=== PATIENT | female | born 1960 | race Hispanic/Latino ===

== ENCOUNTER 2017-07-10 04:23 | Inpatient (IN) | payer MEDICARE, MEDICAID ==
--- NOTE | 2017-07-10 04:38 | C.PDOC ---
History Of Present Illness 56 year old female is a transfer patient from [facility] for psychiatric admission. Patient is transferred ED to ED for visual, auditory hallucinations as well as ETOH abuse. Patient is medically cleared and will be admitted under Dr. Beyer to psych. Chief Complaint (Nursing): Psychiatric Evaluation History Per: Patient, EMS History/Exam Limitations: no limitations Onset/Duration Of Symptoms: Days Current Symptoms Are (Timing): Still Present Suicide/Self Injury Attempted (Context): None Modifying Factor(s): Alcohol Associated Symptoms: denies: Depression, Suicidal Thoughts, Suicidal Plan Involuntary Hold By: None Recent travel outside of the [facility]: No Additional History Per: Patient, EMS Past Medical History Reviewed: Historical Data, Nursing Documentation, Vital Signs Vital Signs: Last Vital Signs Temp 98.1 F 07/10/17 04:25 Pulse 91 H 07/10/17 04:25 Resp 20 07/10/17 04:25 BP 139/90 07/10/17 04:25 Pulse Ox 98 07/10/17 04:38 - Medical History PMH: No Chronic Diseases Denies: Chronic Kidney Disease Surgical History: No Surg Hx - [facility] GROUP PSYCHOTHERAPY (06/06/16) INDIVIDUAL PSYCHOTHERAPY, COGNITIVE-BEHAVIORAL (06/06/16) Family History: States: Unknown Family Hx - Social History Hx Alcohol Use: Yes Hx Substance Use: No Review Of Systems Constitutional: Negative for: Fever, Chills Cardiovascular: Negative for: Chest Pain, Palpitations Respiratory: Negative for: Cough, Shortness of Breath Gastrointestinal: Negative for: Nausea, Vomiting, Abdominal Pain Skin: Negative for: Rash Neurological: Negative for: Weakness, Numbness Psych: Negative for: Depression, Suicidal ideation Physical Exam - Physical Exam Appears: Non-toxic, No Acute Distress Skin: Normal Color, Warm, Dry Head: Atraumatic, Normacephalic Eye(s): bilateral: Normal Inspection Nose: No Discharge, No Deformity Oral Mucosa: Moist Neck: Normal ROM, Supple Chest: Symmetrical Cardiovascular: Rhythm Regular, No Murmur Respiratory: Normal Breath Sounds, No Rales, No Rhonchi, No Wheezing Gastrointestinal/Abdominal: Soft, No Tenderness, No Guarding, No Rebound Extremity: Normal ROM, No Pedal Edema, No Calf Tenderness, No Deformity, No Swelling Neurological/Psych: Oriented x3 ED Course And Treatment O2 Sat by Pulse Oximetry: 98 (On RA) Pulse Ox Interpretation: Normal Medical Decision Making Medical Decision Making: Patient will be admitted to the Hospital under Dr. Beyer to psychiatric services. Disposition Discussed With .: Donya Beyer Doctor Will See Patient In The: Hospital Counseled Patient/Family Regarding: Diagnosis - Disposition Disposition: HOSPITALIZED Disposition Time: 04:37 Condition: STABLE Forms: [facility] (Norwegian) - POA Present On Arrival: None - Clinical Impression Clinical Impression: Bipolar disorder, Schizoaffective disorder - Scribe Statement The provider has reviewed the documentation as recorded by the Scribe Cezar Guardado All medical record entries made by the Scribe were at my direction and personally dictated by me. I have reviewed the chart and agree that the record accurately reflects my personal performance of the history, physical exam, medical decision making, and the department course for this patient. I have also personally directed, reviewed, and agree with the discharge instructions and disposition.
--- NOTE | 2017-07-10 05:27 | PCM.BM ---
<Scar Villalta - Last Filed: 07/10/17 05:24> Treatment Plan Problems - Problems identified on initial assessmt Auditory Hallucination Date Initiated: 07/10/17 Time Initiated: 05:00 Assessment reference: NA Status: Active Visual Hallucination Date Initiated: 07/10/17 Time Initiated: 05:00 Assessment reference: NA Status: Active Alcohol Dependence Date Initiated: 07/10/17 Time Initiated: 05:00 Assessment reference: NA Status: Active Treatment assets and liabiliti Patient Assests: ADL independent, negotiates basic needs Patient Liabilities: live alone, financial problems, poor support system, substance abuse, imparied memory, legal issue - Milieu Protocol Maintain good personal hygiene: daily Encourage regular showers, daily Remind patient to perform daily oral care, daily Assist patient to perform ADL's Maintain personal safety: every shift Educate patient to report safety concerns to staff, every shift Monitor environment for contraband/sharps Medication safety: Monitor for expected outcome, potential side effects: every shift, Assess barriers to learning: every shift, Assess readiness for medication education: every shift <Maryellen Yepez - Last Filed: 07/11/17 10:43> Family Contact Family involvement: Famliy/SO not involved - Goals for Treatment Patient goals for treatment: "I need something to sleep." Discharge/Continuing Care - Education Needs Education Needs: Patient Medication, Patient Coping Skills - Discharge Discharge Criteria: Tolerates medication w/o severe side effects, Reduction of target symptoms Discharge to:: Home - Treatment Team Participation Discussed with Family/SO: No Was Patient/Family/SO present at Treatment Team Meeting: Yes <Theodore Rosales - Last Filed: 07/11/17 10:47> - Diagnosis (1) Schizoaffective disorder Status: Acute Interventions: * Assess/adjust medications daily and /or as needed * See patient on an individual basis 7x/week to assess status of hallucinations * Discuss risks, benefits, side effects and alternatives of medications *
[2017-07-10] MEDS: Multiple Vitamins Tab PO SCH (10:33)
--- NOTE | 2017-07-10 10:36 | PCM.PSYCH ---
Initial Psychiatric Evaluation - Initial Psychiatric Evaluation Type of Admission: Voluntary Legal Status: Capacity Chief Complaint (in patient's own words): I was hearing voices.' History of Present Illness and Precipitating Events: Pt is a 56 year old CF, currently lives @ section 8 housing, on SSD, came to the ED for hearing voices, inability to sleep and anxiety. Pt reports a long history of schizoaffective disorder and alcohol dependence. She reports history of multiple in patient psychiatric admissions, last discharged from [facility], 4 months ago. She denies any h/o f/u after discharge. She reports that she started drinking and stopped taking her meds, following discharge. Patient reports that she is unable to sleep for the last 3 weeks and yesterday she started hearing voices, became increasingly depressed and came to the hospital to get help. Patient remained disorganized and somewhat internally preoccupied throughout the interview. Patient appeared paranoid and delusional. She reports depressed mood and feelings of hopelessness and worthlessness. She reports poor sleep and poor appetite. She at times reports racing of thoughts, poor concentration and poor sleep. She also reports auditory hallucinations, voices yelling at her. She also reports delusions that someone is following her. She reports of drinking but started minimizing her intake. She reports she is drinking 2 beers after every 2-4 days. She reports anxiety, poor sleep and headaches but denies any other withdrawal symptoms. PMH: CAD Current Medications: Active Medications Generic Name Dose Route Start Last Admin Trade Name Freq PRN Reason Stop Dose Admin Benztropine Mesylate 2 mg 07/10/17 05:13 Cogentin PO Q6 PRN Extra Pyramidal Symptoms Clonidine HCl 0.1 mg 07/10/17 05:13 Catapres PO Q4H PRN Symptoms of alcohol withdrawl Dicyclomine HCl 10 mg 07/10/17 05:13 Bentyl PO Q6 PRN Muscle spasm Folic Acid 1 mg 07/10/17 10:00 07/10/17 10:32 Folic Acid PO 1 mg DAILY JOHANA Administration Haloperidol 5 mg 07/10/17 05:13 Haldol PO 07/11/17 10:00 Q8 PRN Moderate Agitation Haloperidol Lactate 5 mg 07/10/17 05:13 Haldol IM 07/11/17 10:00 Q8 PRN Moderate Agitation Hydroxyzine HCl 25 mg 07/10/17 05:13 07/10/17 10:32 Atarax PO 25 mg Q6 PRN Administration Anxiety Lorazepam 2 mg 07/10/17 05:13 07/10/17 05:41 Ativan PO 07/10/17 11:00 2 mg Q8H PRN Administration Severe Agitation Multivitamins 1 tab 07/10/17 10:00 07/10/17 10:33 Hexavitamin PO 1 tab DAILY JOHANA Administration Ondansetron HCl 4 mg 07/10/17 05:13 Zofran Tab PO Q8H PRN Nausea/Vomiting Thiamine HCl 100 mg 07/10/17 10:00 07/10/17 10:32 Vitamin B1 Tab PO 100 mg DAILY JOHANA Administration Past Psychiatric History - Past Psychiatric History Previous Treatment History: Inpatient Pertinent Medical Hx (Current Medical&Sleep Prob, Allergies): Allergies Allergy/AdvReac Type Severity Reaction Status Date / Time fluphenazine [From Prolixin] Allergy Verified 07/10/17 04:40 HALDOL Allergy Uncoded 07/10/17 04:39 Atarax 25 mg PO DAILY 07/10/17 [place] Carbonate 150MG 450 mg PO BID 07/10/17 Zyprexa 10 mg PO HS 07/10/17 Zyprexa 20 mg PO HS 07/10/17 traZODone 100 mg PO 07/10/17 Review of Systems - Review of Systems All systems: reviewed and no additional remarkable complaints except - Psychiatric Psychiatric: Anxiety, Auditory Hallucinations, Irritability, Suicidal Ideation Mental Status Examination - Personal Presentation Personal Presentation: Looks stated age - Affect Affect: Constricted, Depressed - Motor Activity Motor Activity: Calm - Reliability in Providing Information Reliability in Providing Information: Fair - Speech Speech: Disorganized - Mood Mood: Depressed, Anxious - Formal Thought Process Formal Thought Process: Hallucinations, Delusions - Hallucinations/Delusions Hallucinations: Auditory Delusions: Persecution - Obsessions/Compulsions Obsessions: No Compulsions: No - Cognitive Functions Orientation: Person, Place, Situation, Time Sensorium: Alert Attention/Concentration: Attentive Abstract Thinking: [place] Estimate of Intelligence: Below average Judgement: Imparied, as evidence by: Poor judgement, Imparied, as evidence by: Lack of insight into illness - Risk Risk: Suicidal, Diminished functioning - Limitations Limitations: Living alone DSM 5 DX - DSM 5 DSM 5 Diagnosis: Schizoaffective disorder Bipolar type Alcohol use disorder moderate - Recommended/Plan of Treatment Treatment Recommendations and Plan of Treatment: Schizoaffective disorder Bipolar type CBT Psychoeducation Supportive therapy, group therapy, individual therapy [place] 300 mg PO TID Olanzapine 5 mg po QHS Trazodone 50 mg by mouth daily at bedtime Alcohol use disorder moderate CBT Psychoeducation Supportive therapy, individual therapy Use [place] for abstinence Ativan prn CAD Monitor s/s - Smoking Cessation Smoking Cessation Initiated: No
[2017-07-11] MEDS: Multiple Vitamins Tab PO SCH (09:34)
--- NOTE | 2017-07-11 10:47 | PCM.PYCHPN ---
Psychiatric Progress Note - Psychiatric Progress Note Patient seen today, length of contact: 18 min Patient Chief Complaint: I was hearing voices.' Problems Identified/Issues Discussed: Patient seen and evaluated, chart reviewed and discussed with the nurse. Today patient appeared very disorganized and internally preoccupied. She remained very irritable, and agitated. She was yelling and cursing at the staff. 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 She reports that she has not slept for more than 3 weeks. She still appears paranoid and delusional. She still reports depressed mood and feelings of hopelessness. She is taking medication and denies any side effects. She needs more time for stabilization. Supportive therapy and psychoeducation were given. Medication Change: Yes (Start Klonopin, increase lithium) Medical Record Reviewed: Yes Mental Status Examination - Cognitive Function Orientation: Person, Place, Situation, Time Memory: Intact Attention: WNL Concentration: Poor Association: Loose Fund of Knowledge: Poor - Mood Mood: Depressed, Anxious - Affect Affect: Constricted, Depressed - Formal Thought Process Formal Thought Process: Hallucinations, Delusions, Paranoia, Loosening of associations - Suicidal Ideation Suicidal Ideation: No - Homicidal Ideation Homicidal Ideation: No Goal/Treatment Plan - Goal/Treatment Plan Need for Continued Stay: Severe depression anxiety, Severe functional impairment Progress Toward Problem(s) and Goals/Treatment Plan: Schizoaffective disorder Bipolar type CBT Psychoeducation Supportive therapy, group therapy, individual therapy [place] 600 mg PO BID Olanzapine 10 mg po QHS Trazodone 50 mg by mouth daily at bedtime Klonopin 1 mg PO TID Alcohol use disorder moderate CBT Psychoeducation Supportive therapy, individual therapy Use [place] for abstinence Ativan prn CAD Monitor s/s - Smoking Cessation Smoking Cessation Initiated: No
[2017-07-12] MEDS: Multiple Vitamins Tab PO SCH (13:25)
--- NOTE | 2017-07-12 17:35 | PCM.PYCHPN ---
Psychiatric Progress Note - Psychiatric Progress Note Patient seen today, length of contact: 16 min Patient Chief Complaint: "I am not getting any help here" Problems Identified/Issues Discussed: The pt is seen, chart reviewed, case discussed with staff. Support given, psychoeducation given but to no avail - she is too disorganized, pressured She is getting prn geodon and others She is also bothering other patients constantly, called an AAF the N word, etc. She is warned. She clearly needs more time No SEs from medications, risks discussed. She asks for more but odd medications. Medication Change: Yes Medical Record Reviewed: Yes Mental Status Examination - Cognitive Function Orientation: Person, Place, Situation, Time Memory: Intact Attention: Poor Concentration: Poor Association: Loose Fund of Knowledge: Poor - Mood Mood: Depressed, Anxious - Affect Affect: Constricted, Depressed - Formal Thought Process Formal Thought Process: Hallucinations, Delusions, Paranoia, Loosening of associations - Suicidal Ideation Suicidal Ideation: No - Homicidal Ideation Homicidal Ideation: No Goal/Treatment Plan - Goal/Treatment Plan Need for Continued Stay: Discharge may exacerbated symptoms, Severe functional impairment Progress Toward Problem(s) and Goals/Treatment Plan: Continue medications Support and psychoeducation daily Attend groups and activities daily After care planning by VIANEY
[2017-07-12] MEDS ORDERED: DiphenhydrAMINE 50 mg/ml Inj IM PRN (18:55)
[2017-07-13] MEDS: Multiple Vitamins Tab PO SCH (09:08)
--- NOTE | 2017-07-14 00:52 | PCM.PYCHPN ---
Psychiatric Progress Note - Psychiatric Progress Note Patient seen today, length of contact: 16 min Patient Chief Complaint: "I should leave here" Problems Identified/Issues Discussed: The pt is seen, chart reviewed, case discussed with staff. Support given and psychoed given No major change since yesterday; disorganized, manicky No SEs from medications, risks discussed again. Medication Change: Yes Medical Record Reviewed: Yes Mental Status Examination - Cognitive Function Orientation: Person, Place, Situation, Time Memory: Intact Attention: Poor Concentration: Poor Association: Loose Fund of Knowledge: Poor - Mood Mood: Anxious, Other (irate) - Affect Affect: Other (labile) - Formal Thought Process Formal Thought Process: Hallucinations, Delusions, Paranoia, Loosening of associations - Suicidal Ideation Suicidal Ideation: No - Homicidal Ideation Homicidal Ideation: No Goal/Treatment Plan - Goal/Treatment Plan Need for Continued Stay: Severe depression anxiety, Severe functional impairment Progress Toward Problem(s) and Goals/Treatment Plan: Continue medications Support and psychoeducation daily Attend groups and activities daily After care planning by VIANEY
[2017-07-14] MEDS: Multiple Vitamins Tab PO SCH (09:56)
--- NOTE | 2017-07-14 09:58 | PCM.PYCHPN ---
Psychiatric Progress Note - Psychiatric Progress Note Patient seen today, length of contact: 16 min Patient Chief Complaint: "the voices keep telling me I'm ugly' Problems Identified/Issues Discussed: Patient seen and evaluated, chart reviewed and discussed with the nurse. Today patient appeared somewhat more organized and less internally preoccupied. She still reports anxiety, agitation and poor sleep. However she still appears paranoid and delusional. She still reports depressed mood and auditory hallucinations that are negative. She is taking medication and denies any side effects. She needs more time for stabilization. Supportive therapy and psychoeducation were given. Medication Change: Yes (increase lithium, Start Prolixin) Medical Record Reviewed: Yes Mental Status Examination - Cognitive Function Orientation: Person, Place, Situation, Time Memory: Intact Attention: Poor Concentration: Poor Association: Loose Fund of Knowledge: Poor - Mood Mood: Depressed, Anxious - Affect Affect: Constricted, Depressed - Speech Speech: Loud - Formal Thought Process Formal Thought Process: Hallucinations, Delusions, Paranoia, Loosening of associations - Suicidal Ideation Suicidal Ideation: No - Homicidal Ideation Homicidal Ideation: No Goal/Treatment Plan - Goal/Treatment Plan Need for Continued Stay: Severe depression anxiety, Severe functional impairment Progress Toward Problem(s) and Goals/Treatment Plan: Schizoaffective disorder Bipolar type CBT Psychoeducation Supportive therapy, group therapy, individual therapy [place] 600 mg PO BID Olanzapine 10 mg po QHS Trazodone 50 mg by mouth daily at bedtime Klonopin 1 mg PO TID Alcohol use disorder moderate CBT Psychoeducation Supportive therapy, individual therapy Use [place] for abstinence Ativan prn CAD Monitor s/s
[2017-07-15] MEDS: Multiple Vitamins Tab PO SCH (09:51)
--- NOTE | 2017-07-15 10:09 | PCM.PYCHPN ---
Psychiatric Progress Note - Psychiatric Progress Note Patient seen today, length of contact: 16 min Patient Chief Complaint: "Im feeling anxious" Problems Identified/Issues Discussed: Patient seen and evaluated, chart reviewed and discussed with the nurse. As per the staff, patient remained up last night. She still appears disorganized and internally preoccupied. She has make up on all over her face and still appears delusional and paranoid. She still reports of hearing voices that are yelling at her. She is taking medication and denies any side effects. She needs more time for stabilization. Supportive therapy and psychoeducation were given. Medication Change: Yes (increase lithium, increase Prolixin) Medical Record Reviewed: Yes Mental Status Examination - Cognitive Function Orientation: Person, Place, Situation Memory: Impaired Attention: Poor Concentration: Poor Association: Loose Fund of Knowledge: Poor - Mood Mood: Depressed, Anxious - Affect Affect: Constricted, Depressed - Speech Speech: Loud - Formal Thought Process Formal Thought Process: Hallucinations, Delusions, Paranoia, Loosening of associations - Suicidal Ideation Suicidal Ideation: No - Homicidal Ideation Homicidal Ideation: No Goal/Treatment Plan - Goal/Treatment Plan Need for Continued Stay: Severe depression anxiety, Severe functional impairment Progress Toward Problem(s) and Goals/Treatment Plan: Schizoaffective disorder Bipolar type CBT Psychoeducation Supportive therapy, group therapy, individual therapy Neur[place]in 300 mg PO TID [place] 600 mg PO BID Prolixin 10 mg PO BID Olanzapine 20 mg po QHS Trazodone 50 mg by mouth daily at bedtime Klonopin 1 mg PO TID Alcohol use disorder moderate CBT Psychoeducation Supportive therapy, individual therapy Use [place] for abstinence Ativan prn CAD Monitor s/s - Smoking Cessation Smoking Cessation Initiated: No
[2017-07-16] MEDS: Multiple Vitamins Tab PO SCH (09:25)
--- NOTE | 2017-07-16 14:15 | PCM.PYCHPN ---
Psychiatric Progress Note - Psychiatric Progress Note Patient seen today, length of contact: 16 min Patient Chief Complaint: "I want more Ativan" Problems Identified/Issues Discussed: The pt is seen, chart reviewed, case discussed with staff. Patient is asking for high doses of Ativan. She is very irritable and tearful. She has make up on all over her face and still appears delusional and paranoid. She still appears disorganized. She continues to hear voices and feel depressed. Patient is asking to leave Friday. The pt is compliant with medications and reports no side-effects. Symptoms are improving but needs more time to stabilize. After care discussed, support and psychoeducation given. Medication Change: Yes (Prolixin decanoate) Medical Record Reviewed: Yes Mental Status Examination - Cognitive Function Orientation: Person, Place, Situation Memory: Impaired Attention: WNL Concentration: Poor Association: Loose Fund of Knowledge: Poor - Mood Mood: Depressed, Anxious - Affect Affect: Constricted, Depressed - Speech Speech: Loud - Formal Thought Process Formal Thought Process: Hallucinations, Delusions, Paranoia, Loosening of associations - Suicidal Ideation Suicidal Ideation: No - Homicidal Ideation Homicidal Ideation: No Goal/Treatment Plan - Goal/Treatment Plan Need for Continued Stay: Severe depression anxiety, Severe functional impairment Progress Toward Problem(s) and Goals/Treatment Plan: Schizoaffective disorder Bipolar type CBT Psychoeducation Supportive therapy, group therapy, individual therapy Neurontin 300 mg PO TID [place] 600 mg PO BID Prolixin 10 mg PO BID Olanzapine 20 mg po QHS Trazodone 50 mg by mouth daily at bedtime Klonopin 1 mg PO TID Prolixin [place] 25 mg IM Alcohol use disorder moderate CBT Psychoeducation Supportive therapy, individual therapy Use [place] for abstinence Ativan prn CAD Monitor s/s - Smoking Cessation Smoking Cessation Initiated: No
[2017-07-17] MEDS: Multiple Vitamins Tab PO SCH (09:23)
[2017-07-17] MEDS ORDERED: fluPHENAZine Decanoate 25 mg/mL Inj(5ml) IM ONE (11:00)
--- NOTE | 2017-07-17 11:45 | PCM.PYCHPN ---
Psychiatric Progress Note - Psychiatric Progress Note Patient seen today, length of contact: 16 min Patient Chief Complaint: "I should leave here" Problems Identified/Issues Discussed: The pt is seen, chart reviewed, case discussed with staff. Support given and psychoed given Patient has improved since yesterday. She is less manic and not shouting at staff or other patients. She is still emotional and disorganized No SEs from medications, risks discussed again. Prolixin discontinued and Zyprexa increased to 30 mg due to alleged "allergy" to Prolixin. She also refused Pro. Dec shot Li and other labs ordered. Medication Change: Yes (zyprexa now 30 mg) Medical Record Reviewed: Yes Mental Status Examination - Cognitive Function Orientation: Person, Place, Situation, Time Memory: Intact Attention: Poor Concentration: Poor Association: Loose Fund of Knowledge: Poor - Mood Mood: Anxious, Other (irate) - Affect Affect: Other (labile) - Speech Speech: Loud - Formal Thought Process Formal Thought Process: Hallucinations, Delusions, Paranoia, Loosening of associations - Suicidal Ideation Suicidal Ideation: No - Homicidal Ideation Homicidal Ideation: No Goal/Treatment Plan - Goal/Treatment Plan Need for Continued Stay: Severe depression anxiety, Severe functional impairment Progress Toward Problem(s) and Goals/Treatment Plan: Schizoaffective disorder Bipolar type CBT Psychoeducation Supportive therapy, group therapy, individual therapy Neurontin 300 mg PO TID [place] 600 mg PO BID Olanzapine 30 mg po QHS Trazodone 50 mg by mouth daily at bedtime Klonopin 1 mg PO TID Prolixin [place] 25 mg IM Alcohol use disorder moderate CBT Psychoeducation Supportive therapy, individual therapy Use [place] for abstinence Ativan prn CAD Monitor s/s
[2017-07-18 06:27] VITALS: RESP 20; TEMP 97.4
[2017-07-18 08:24] LABS: BASO % 0.6 % (0.0-2.0); EOS # 0.1 K/uL (0.0-0.7); EOS % 1.5 % (0.0-4.0); HEMOGLOBIN 13.4 g/dL (11.0-16.0); LYMPH # 1.8 K/uL (1.0-4.3); MEAN CELL VOLUME 95.9 fL (81.0-99.0); MEAN CORPUSCULAR HEMOGLOBIN 32.7 pg (27.0-31.0); MEAN CORPUSCULAR HGB CONC 34.1 g/dL (33.0-37.0); MONO # 0.8 K/uL (0.0-0.8); MONO % 10.6 % (0.0-10.0); NEUT # 4.8 K/uL (1.8-7.0); NEUT % 63.3 % (50.0-75.0); RBC 4.1 Mil/uL (3.80-5.20); RED CELL DISTRIBUTION WIDTH 14.7 % (11.5-14.5); WHITE BLOOD COUNT 7.7 K/uL (4.8-10.8)
[2017-07-18 08:26] VITALS: BP 119/81; PULSE 76; O2SAT 99
[2017-07-18 08:45] LABS: ALB/GLOB RATIO 1.4 (1.0-2.1); ALT/SGPT 29 U/L (9-52); AST/SGOT 23 U/L (14-36); BLOOD UREA NITROGEN 14 mg/dL (7-17); CALCIUM 10.1 mg/dl (8.6-10.4); GFR AFRICAN-AMERICAN > 60; GFR NON-AFRICAN AMERICAN > 60
[2017-07-18] MEDS: Multiple Vitamins Tab PO SCH (09:30)
--- NOTE | 2017-07-18 10:35 | PCM.PYCHDC ---
Mental Status Examination - Mental Status Examination Orientation: Person, Place, Situation, Time Memory: Intact Mood: Neutral Affect: Constricted Speech: Soft Attention: WNL Concentration: WNL Association: WNL Fund of Knowledge: WNL Formal Thought Process: No Impairment Description of patient's judgement and insight: GOOD, FAIR Psychotic Thoughts and Behaviors: denies any AVH Suicidal Ideation: No Current Homicidal Ideation?: No Discharge Summary - Discharge Note Reason for Hospitalization: Pt is a 56 year old CF, currently lives @ section 8 housing, on SSD, came to the ED for hearing voices, inability to sleep and anxiety. Pt reports a long history of schizoaffective disorder and alcohol dependence. She reports history of multiple in patient psychiatric admissions, last discharged from [facility], 4 months ago. She denies any h/o f/u after discharge. She reports that she started drinking and stopped taking her meds, following discharge. Patient reports that she is unable to sleep for the last 3 weeks and yesterday she started hearing voices, became increasingly depressed and came to the hospital to get help. Patient remained disorganized and somewhat internally preoccupied throughout the interview. Patient appeared paranoid and delusional. She reports depressed mood and feelings of hopelessness and worthlessness. She reports poor sleep and poor appetite. She at times reports racing of thoughts, poor concentration and poor sleep. She also reports auditory hallucinations, voices yelling at her. She also reports delusions that someone is following her. She reports of drinking but started minimizing her intake. She reports she is drinking 2 beers after every 2-4 days. She reports anxiety, poor sleep and headaches but denies any other withdrawal symptoms. Laboratory Data: Abnormal Lab Results 07/18/17 07/18/17 07/18/17 08:04 08:04 08:04 WBC 7.7 RBC 4.10 Hgb 13.4 Hct 39.3 MCV 95.9 MCH 32.7 H MCHC 34.1 RDW 14.7 H Plt Count 377 MPV 9.0 Neut % (Auto) 63.3 Lymph % (Auto) 24.0 Major % (Auto) 10.6 H Eos % (Auto) 1.5 Baso % (Auto) 0.6 Neut # 4.8 Lymph # 1.8 Major # 0.8 Eos # 0.1 Baso # 0.0 Sodium 136 Potassium 4.3 Chloride 102 Carbon Dioxide 30 Anion Gap 9 L BUN 14 Creatinine 0.7 Est GFR ( Amer) > 60 Est GFR (Non-Af Amer) > 60 Random Glucose 101 Calcium 10.1 Total Bilirubin 0.3 AST 23 ALT 29 Alkaline Phosphatase 58 Total Protein 7.0 Albumin 4.0 Globulin 2.9 Albumin/Globulin Ratio 1.4 [place] 0.9 Consultations:: List each consultation separately and include: 1. Reason for request. 2. Findings. 3. Follow-up Summary of Hospital Course include:: 1. Description of specific treatment plan utilized for patients during their course of treatmen. 2. Summarize the time- course for resolution of acute symptoms and/or regressed behaviors. 3. Describe issues identified and worked on during hospitalization. 4. Describe medication utilized. 5. Describe medical problems identified and treated. 6. Reassessment of suicide risk Summary of Hospital Course: During the course of her stay, patient (pt) started progressively improving and she no longer remained irritable, anxious and paranoid. Her mood and paranoia were improved and she started attending groups and meetings and started socializing. Patient denied any feelings of hopelessness, helplessness, and worthlessness, denied any problem with the sleep or appetite, denied suicidal ideation or homicidal ideation. Pt denied any auditory or visual hallucinations. Some changes were made in her current medications and patient was discharged on following medications. She tolerated these medications very well and denied any side effects. Pt is to live with her mother in [place] and will return to partial care program at [facility] [place] in [place]. - Diagnosis (1) Schizoaffective disorder Status: Acute - Final Diagnosis (DSM 5) Condition upon Discharge: STABLE DSM 5: Schizoaffective disorder Bipolar type Alcohol use disorder moderate Disposition: HOME/ ROUTINE Follow-up Treatment Plan: Education: Pt was educated and counseled about the risks and benefits of taking and not taking medications. Pt was educated and counseled about the risks of drinking and abusing drugs. Pt was educated and counseled to go to the ER or call 911 if pt develop suicidal ideation or homicidal ideation, worsening of symptoms or severe side effects of the meds. Prescriptions/Medication Reconciliation: Gabapentin [Neurontin] 300 mg PO TID #90 cap [place] Carbonate [[place] Carbonate 300MG] 600 mg PO TID #90 cap OLANZapine [Zyprexa] 10 mg PO DAILY #30 tab OLANZapine [Zyprexa] 20 mg PO HS #30 tab traZODone [Desyrel] 100 mg PO HS #30 tab - Smoking Cessation Smoking Cessation Medication prescribed: No - Antipsychotic Medications Pt discharged on 2 or more routine antipsychotic medications: No
== END 2017-07-18 13:15 | disposition home or self-care (01) | DRG 885 ==
LOC: C.ER 04:23 → C.5E 04:38
PROVIDERS: ADMIT Psychiatry & Neurology Psychiatry; ATTEND Psychiatry & Neurology Psychiatry
PROC: GZ56ZZZ Individual Psychotherapy, Supportive (ICD-10-PCS; principal; 2017-07-10)
DX: F25.0 Schizoaffective disorder, bipolar type (principal); F10.10 Alcohol abuse, uncomplicated; F41.9 Anxiety disorder, unspecified; G47.00 Insomnia, unspecified; I25.10 Atherosclerotic heart disease of native coronary artery without angina pectoris